=== PATIENT | male | born 1940 | race Caucasian/White ===

== ENCOUNTER 2016-06-27 08:12 | Inpatient (IN) | payer MEDICARE ==
[~2016-06-27] VITALS: Ht 162.6 cm; Wt 63.6 kg
--- NOTE | ~2016-06-27 | CO ---
ADMIT: 06/27/2016 RM/LOC: 407 [facility] MR#: [id number] [address] [address] KOFI LEVY W [address] [place] [address] Consultation SEX: M AGE: 75 : 1940 DATE OF CONSULTATION: 06/27/2016 ATTENDING PHYSICIAN: Federico Paz CONSULTING PHYSICIAN: Alex Burks MD ADDENDUM: Mr. Levy was seen in consultation and eyed independently after Reymundo Muñoz. I have interviewed Kofi, examined him, reviewed his laboratory and radiographic studies independently. I have also reviewed Reymundo Muñoz's documentation, assessment, and plan, and I am in agreement with that in its entirety. I have recommended nasogastric tube placement if Mr. Levy experiences further nausea or vomiting or worsened distention. His abdomen is currently distended, but soft and nontender. He has had multiple bowel movements today suggesting resolving bowel obstruction versus ileus as the diagnosis. We will continue to follow along, but we will plan to initiate conservative measures if he has further symptomatology. If no further nausea or vomiting overnight and further bowel function, we will plan to initiate a liquid diet tomorrow. I have discussed this as the plan with Kofi and he agrees. Alex Burks MD/ sheyla JOB #: [id number] CC: Federico Paz, Attending Physician Federico Paz, Family Physician
[2016-07-01] MEDS ORDERED: NORVASC DPS10 MG PO (08:59)
[2016-07-01] MEDS ORDERED: PROVENTIL HFA6.7 GM IH (08:59)
[2016-07-01] MEDS ORDERED: VITAMIN D31000 UNIT PO (09:00)
[2016-07-01] MEDS ORDERED: LIPITOR40 MG PO (09:00)
[2016-07-01] MEDS ORDERED: ACIDOPHILUS1 EAC1 PO (09:00)
[2016-07-01] MEDS ORDERED: LOPRESSOR DPS12.5 MG PO (09:00)
[2016-07-01] MEDS ORDERED: STIOLTO RESPIMAT4 GM IH (09:01)
[2016-07-01] MEDS ORDERED: PROTONIX40 MG PO (09:01)
[2016-07-01] MEDS ORDERED: METAMUCIL SF P3.4 GM PO (09:03)
[2016-07-01] MEDS ORDERED: OMEGA-3 DPS1000 MG PO (09:07)
[2016-07-01] MEDS ORDERED: VITAMIN B COMP1 EACH PO (09:07)
[2016-07-01] MEDS ORDERED: ASA CHILDREN'S81 MG PO (09:07)
[2016-07-01] MEDS ORDERED: THERA-M1 EACH PO (09:07)
[2016-07-01] MEDS ORDERED: COLACE-DPS100 MG PO (09:08)
[2016-07-01] MEDS ORDERED: TYLENOL DPS325 MG PO (09:08)
[2016-07-01] MEDS ORDERED: MAALOX DPS30 ML PO (09:08)
--- NOTE | 2016-07-01 21:38 | ER ---
ADMIT: 06/27/2016 RM/LOC: 407 [facility] MR#: [id number] 2620 [facility] [address] [place], [place] [address] LIDIA NEWMAN [address] [place] [address] Emergency Room Report SEX: M AGE: 75 : 1940 DATE: 06/27/2016 ADDENDUM: See T-sheet for complete H and P. A 75-year-old male, who has history of renal cancer and colon cancer, status post nephrectomy and a previous colectomy, comes in complaining of some vague abdominal discomfort and nausea and vomiting. He is apparently cancer-free at this point and gets all his care through the [place]. His physical exam shows he has minimal abdominal tenderness. During this workup, he had to use the restroom. We had the patient get up, he felt very lightheaded, and we checked his blood pressure and he was hypotensive. At that point, I increased his workup and did a sepsis workup on the patient. His CBC was elevated at 23.8, otherwise it was unremarkable. Chemistries are normal other than a magnesium of 1.7 and a creatinine of 2.1. As he does not get his care here, I am unsure of the patient's baseline creatinine at this time. Procalcitonin is 0.09, lactic is 1.8. INR is less than 1. I did get a CT of abdomen and pelvis and of his chest because he has had a chronic cough, the findings show he has early small bowel obstruction. I did get the patient fluid resuscitation here in the ER and was given a dose of antibiotics because of his elevated white blood cell count, even I did not see an obvious source of infection at this time. We did plan on having the patient go to the [place], but they are on diversion. Therefore, the patient was admitted to [facility] and I spoke to Dr. Paz who has graciously agreed to admit the patient to his service for further management. While he was in the ER, the patient did have several bouts of diarrhea, but it was slowing down towards the end of his stay. He was feeling much more comfortable. DIAGNOSES: 1. Small bowel obstruction. 2. Hypotension. 3. Diarrhea. 4. Renal insufficiency. Brannon Mckeon MD/ sheyla JOB #: [id number] CC: Federico Paz MD, Attending Physician Federico Paz MD, Family Physician
--- NOTE | 2016-07-02 07:24 | CO ---
ADMIT: 06/27/2016 RM/LOC: 407 [facility] MR#: [id number] [address] [address] KOFI NEWMAN [address] [place] [address] Consultation SEX: M AGE: 75 : 1940 DATE OF CONSULTATION: 06/27/2016 ATTENDING PHYSICIAN: Federico Paz CONSULTING PHYSICIAN: Alex Burks MD REASON FOR CONSULTATION: Early partial small bowel obstruction. HISTORY OF PRESENT ILLNESS: Kofi is a very pleasant 75-year-old male, who states that he has had crampy abdominal pain for the last 2 weeks. His symptoms progressively got worse overnight and into this morning, where he developed worsening abdominal pain, nausea, and 4 times emesis. He did also have 20 bowel movements that were small and loose today. His bowel movements can be dark at times, but he denies any obvious blood in them. He further denies any hematemesis. He does state that this has happened to him before and he believes it is from his gallbladder surgery back in 2011. Since then, his bowel movements "have never been the same." PAST MEDICAL HISTORY: Significant for hypertension, throat cancer, rectal cancer, high cholesterol, and GERD. PAST SURGICAL HISTORY: 1. Lap steven in 2011. 2. Ventral hernia repair with mesh. 3. Low anterior resection with diverting ileostomy and subsequent takedown. ALLERGIES: MORPHINE. MEDICATIONS: Well documented in chart. FAMILY HISTORY: Noncontributory. SOCIAL HISTORY: The patient is a former smoker, quit approximately two and half years ago. He drinks alcohol, occasional beer. REVIEW OF SYSTEMS: The patient denies any fever, chills, or night sweats. The rest of a comprehensive 10-point review of systems was performed and all other systems are negative. PHYSICAL EXAMINATION: GENERAL: The patient is in no acute distress. He is alert and oriented. HEENT: Head is normocephalic and atraumatic. EOMS are intact. Conjunctivae free of icterus, erythema, or pallor. Pinnae are free of deformities. Nose, midline. No tracheal deviation. NECK: Supple. SKIN: Negative for jaundice, clubbing, edema, pallor, or cyanosis. LUNGS: Normal respiratory effort. HEART: Distal pulses intact. Regular rate and rhythm. ABDOMEN: Soft, nondistended, tender in right lower quadrant and left lower ADMIT: 06/27/2016 RM/LOC: 407 [facility] MR#: [id number] [address] [address] TRENTKOFI [address] [place] [address] Consultation SEX: M AGE: 75 : 1940 quadrants. NEURO: Grossly intact. DIAGNOSTIC IMAGING: CT of abdomen and pelvis revealed possible early small bowel obstruction with dilated loops of small bowel and unclear transition point in the right lower quadrant right at terminal ilium. ASSESSMENT: Early partial small bowel obstruction. PLAN: Plan right now is to continue conservative measures. I will give him clears and place an NG should persistent nausea with emesis occur. I did tell him that if conservative measures were an option for him, his condition were to worsen that we would proceed with surgery. He is in agreement with this plan, had all of his questions answered and would like to proceed. Thank for the consultation of this patient. ZAIN Patel / Alex Burks MD / sheyla JOB #: [id number] CC: Federico Paz, Attending Physician Federico Paz, Family Physician
--- NOTE | 2016-07-02 12:53 | HP ---
ADMIT: 06/27/2016 RM/LOC: 407 [facility] MR#: [id number] [facility]#: [id number] 2620 [facility] [address] [place], [place] [address] LIDIA LEVY [address] [place] [address] History and Physical SEX: M AGE: 75 : 1940 DATE OF SERVICE: CHIEF COMPLAINT: Severe abdominal pain with diffuse abdominal pain and discomfort with cramping with persistent nausea and vomiting. CLINICAL HISTORY: Mr. Levy is a 75-year-old, white male, who usually receives his medical care at the [facility]. He presented to the ER here at [facility] on the afternoon of 06/27/2016, complaining of diffuse abdominal discomfort with cramping and mid abdominal pain. He has had the onset of his abdominal pain the previous evening. The pain has gotten progressively worse since it initially started on 06/26/2016. In conjunction with the pain, he has been quite nauseated and has had intermittent vomiting. He notes that following each emesis, there was a brief period of time that he feels a little better, but then the cramping recurs. He notes he has not been able to eat or drink anything today. If there is any attempt to do so, causes his abdominal cramping to be worse, and he then gets extremely nauseated and has recurrent emesis. This is the point now that he is just having retching and intermittent bilious vomiting. He notes that he has had a couple of loose stools over the last 24 hours, but has not had his usual formed bowel movement. The patient as noted, usually receives his care through the [facility] and has never been previously hospitalized here. He does have significant medical history in that he has history of previous colorectal cancer and a low rectal carcinoma, had resection of his rectum and a portion of his sigmoid colon in 2011. After a period of time, he then had a colostomy, ultimately 8 to 9 months after his initial colon resection. He had a takedown of his colostomy and reanastomosis. In addition to those 2 abdominal surgery, he notes he has also had a previous laparoscopic cholecystectomy in 2011. He had a right nephrectomy for renal cell carcinoma in 2011. Had no previous difficulty with bowel obstruction. His workup in the ER included a CT of the abdomen and pelvis as well as a CT of his chest. His CT of his abdomen and pelvis showed changes consistent with a small bowel obstruction with a transition point noted in the right lower quadrant with distended bowel proximal to that area and decompressed bowel following the area of transition. His workup in the ER also included lab studies which showed his white count to be elevated at 23,800. His creatinine was elevated at 2.1. He was evaluated through the sepsis protocol because of his leukocytosis. However, his procalcitonin was normal at 0.09 and lactic acid was normal at 1.8. As noted, his CT of the abdomen showed small bowel obstruction. His CT of the chest showed extensive changes of COPD with some chronic interstitial scarring, but no evidence of pneumonia and no significant pulmonary masses. In view of his small bowel obstruction, it was felt best to admit for medical management as well as surgical consultation. PAST MEDICAL HISTORY: As noted, he has had no prior admissions to [facility]. All of his admissions have been through the [facility]. He notes he usually has to go to the [facility] for admission. He however, did have radiation therapy here at the [facility]. In 2012, he was diagnosed with squamous cell carcinoma of the larynx and was treated with radiation therapy. He has had no evidence of ADMIT: 06/27/2016 RM/LOC: 407 [facility] MR#: [id number] [address] [address] LIDIA LEVY [facility] [place] [address] History and Physical SEX: M AGE: 75 : 1940 recurrence since then. He is followed by ENT through the [place]. He notes he was hospitalized multiple times in 2012. He was noted to have rectal bleeding and found to have a colon cancer in 2012, this was in the lower rectal segment. As noted, he had a low rectal resection and temporarily had a colostomy for 8 months. Then, had that colostomy taken down and reanastomosis. In addition, in 2012, he also underwent a right nephrectomy. He had a laparoscopic hand- assisted nephrectomy in 2012 for renal cell carcinoma. He notes he had those 4 major surgeries in 2012, and has had no other major surgeries since that time. He has had no other hospitalizations other than for a couple admissions with COPD exacerbations to the [facility]. CURRENT MEDICATIONS: Include: 1. Albuterol metered dose inhaler 2 puffs every 6 hours p.r.n. shortness of breath. 2. Atorvastatin 40 mg at bedtime. 3. Norvasc 10 mg daily. 4. Vitamin D 1000 units daily. 5. Lactobacillus probiotic twice daily. 6. Metoprolol tartrate 12.5 mg b.i.d. 7. Stiolto 2.5/2.5 two puffs daily. 8. Protonix 40 mg daily. 9. Psyllium powder 1 teaspoon twice daily. 10.Vitamin B complex supplement one daily. 11.Baby aspirin 81 mg daily. 12.Fish oil 2000 mg daily. 13.Multivitamin 1 daily. ALLERGIES: NO KNOWN ALLERGIES. MEDICAL ILLNESSES: The patient notes a history of: 1. Chronic obstructive pulmonary disease. 2. Hypertension. 3. Hyperlipidemia. 4. Atherosclerotic coronary vascular disease. 5. History of colorectal CA. Clinically, no evidence of disease. 6. History of renal cell carcinoma. Clinically, no evidence of disease. 7. History of squamous cell carcinoma of the larynx. Clinically, no evidence of disease. 8. 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 Baseline creatinine typically running around 1.5 to 1.7. SOCIAL HISTORY: The patient is . He is retired. He was a forced boxing trainer for 30 years. He currently lives alone in his own home here in [place]. He notes he quit smoking in January of 2013 when he was diagnosed with his laryngeal cancer. Up until that time, he had been 1 to 2 pack a day smoker. 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 He notes his alcohol consumption is quite limited at this point in time, having only an occasional beer once a month. ADMIT: 06/27/2016 RM/LOC: 407 [facility] MR#: [id number] [address] [address] LIDIA LEVY [address] [place] [address] History and Physical SEX: M AGE: 75 : 1940 FAMILY HISTORY: He notes no significant familial related health problems. REVIEW OF SYSTEMS: CONSTITUTIONAL: The patient notes he is very limited in his physical activities due to his COPD. He is O2 dependent, wears O2 continuously because of his hypoxia and shortness of breath. Has very limited activity tolerance, he is always tired. HEENT: No new eye, ear, nose, or throat complaints. He denies any upper respiratory congestion. No recent change in vision or hearing. PULMONARY: He has a chronic cough, marked dyspnea on exertion. He was a long- term heavy smoker with a 90+ pack-year history of smoking. Denies any hemoptysis. CARDIAC: Has a history of coronary artery disease. He has had no recent chest pain. No palpitations. The patient does have orthopnea. Denies any history of rhythm disturbance. No syncope. GASTROINTESTINAL: Has noted nausea for the last 24 hours. Intermittent vomiting, severe abdominal cramping. No blood in the stools. No melena or hematochezia. Does have a past history of colorectal carcinoma. GENITOURINARY: History of chronic kidney disease. Has unilateral left kidney. No flank pain or dysuria at this time. Does have history of mild BPH. MUSCULOSKELETAL: Some generalized arthritic discomfort. NEUROLOGIC: No history of strokes, seizures, or TIAs. No unusual headaches. Does complain of marked lightheadedness and dizziness. Was noted to have significant orthostatics symptoms while in the ER today. ENDOCRINE: No history of diabetes. HEMATOLOGIC: No significant history of anemia or clotting disorders. PHYSICAL EXAMINATION: VITAL SIGNS: Temperature is 98.6, pulse is 89, respirations 22, blood pressure 137/67, O2 saturation is 90% with oxygen at 4 L. Current weight 138 pounds. GENERAL: The patient is a very frail 75-year-old male, who appears older than his stated age. He is in no acute distress. He is oriented x3. Pleasant and cooperative. ENT: Ears are clear. Pupils are equal and reactive. Sclerae nonicteric. Conjunctivae noninflamed. Nose and throat are unremarkable. His oral mucous membranes are dry. NECK: Supple. No cervical adenopathy. No neck vein distention. No carotid bruits. LUNGS: Today are diminished throughout. Breath sounds are coarse. He has some upper airway rhonchi and a few coarse wheezes. No rales noted. No dullness to percussion. HEART: Noted have a regular rhythm. No murmurs. No evidence of failure. ABDOMEN: Somewhat protuberant. Mildly distended. It is tympanic to percussion. Bowel sounds are hypoactive. He does have a scar on his lower abdomen from his previous colon resection, also has a low-lying scar on the right side of his abdomen from previous nephrectomy. He has diffuse tenderness, but no guarding or rigidity. As noted, bowel sounds are ADMIT: 06/27/2016 RM/LOC: 407 [facility] MR#: [id number] [facility] [address] [address] ILDIA LEVY [address] [place] [address] History and Physical SEX: M AGE: 75 : 1940 hypoactive. GENITALIA: Normal male. Bilaterally descended testes. No hernias. RECTAL: Reveals no stool in the rectal ampulla. EXTREMITIES: Today are noted to have no edema. No clubbing or cyanosis. No calf tenderness. Negative Homans sign. He has generalized weakness, age- related sarcopenia, and muscle wasting. When I sit him up on the side of the bed, he does get significant orthostatic symptoms. Feels lightheaded and dizzy. Blood pressure is normal when he is lying down. NEUROLOGIC: I can see no focal deficits. He has marked generalized weakness today. LABORATORY DATA: His pre-admission laboratory work included a CBC, which showed a white count elevated at 23,800, hemoglobin was 16.2, hematocrit 46.7. Lactic acid was 1.8. Procalcitonin 0.09. Sodium was 137, potassium 3.7, BUN was 14, creatinine 2.1. CT scan did show changes of small bowel obstruction. ASSESSMENT AT THE TIME OF ADMISSION: 1. Severe abdominal pain. 2. Protracted nausea. 3. Small bowel obstruction. 4. Severe chronic obstructive pulmonary disease, O2 dependent. 5. Chronic respiratory failure with hypoxia. 6. Hypertension. 7. Hyperlipidemia. 8. Chronic gastroesophageal reflux disease. 9. History of colorectal carcinoma status post low rectal resection. Clinically, no evidence of disease. 10.History of renal cell carcinoma status post right nephrectomy. 11.History of squamous cell carcinoma of the larynx status post radiation therapy. 12.Marked debility secondary to his pulmonary disease. PLAN: Plan is to admit the patient. We will admit the patient for medical management of the small bowel obstruction. We will rehydrate with IV fluids. We will keep him n.p.o., initially. We will ask [facility] to see him in consultation. Hopefully, this small-bowel obstruction will resolve with medical management and not require further surgical intervention. We will continue with present management of his other medical problems including his chronic respiratory failure. Federico Paz MD/ sheyla JOB #: [id number] CC: Federico Paz, Attending Physician Federico Paz, Family Physician
--- NOTE | 2016-07-21 13:06 | DS ---
ADMIT: 06/27/2016 RM/LOC: 407 [facility] MR#: [id number] [address] [address] LIDIA LEVY [address] [place] [address] General Discharge Summary SEX: M AGE: 75 : 1940 ADMISSION DATE: 06/27/2016 DISCHARGE DATE: 06/30/2016 Note: This is a [facility] patient, [facility] patient. ADMITTING DIAGNOSIS: As per history and physical. FINAL DIAGNOSES: 1. Severe abdominal pain, resolved. 2. Partial small bowel obstruction, resolved. 3. Protracted nausea and vomiting, resolved. 4. Severe chronic obstructive pulmonary disease, O2 dependent. 5. Chronic respiratory failure with hypoxia. 6. Hypertension. 7. Hyperlipidemia. 8. Chronic gastroesophageal reflux disease. 9. Past history of colorectal carcinoma, clinically no evidence of disease. 10.History of renal cell carcinoma, status post right nephrectomy. Clinically, no evidence of disease. 11.Squamous cell carcinoma of the larynx, status post radiation therapy. Clinically, no evidence of disease. 12.Marked debility secondary to his severe chronic obstructive pulmonary disease. 13.Acute renal insufficiency, resolved. 14.Chronic kidney disease stage 3. 15.Solitary pulmonary nodule. 16.Tobacco use disorder/nicotine dependence, in full sustained remission. COMPLICATIONS: None. OPERATIONS: None. CLINICAL HISTORY: Mr. Levy is a 75-year-old white male, [facility] patient, who usually receives his healthcare through the [place]. He presented to the ER at [facility] on the afternoon of 06/27/2016, complaining of diffuse abdominal discomfort with abdominal cramping and mid abdominal pain. He was evaluated in the ER and it was felt that he had a partial small bowel obstruction. Given his abdominal pain, dehydration, protracted nausea and vomiting, and acute renal insufficiency, it was felt best to admit. For further details of the patient's clinical history, as well as past medical history and pertinent findings on physical exam, please see dictated history and physical. Please also see Dr. Burks's dictated surgical consultation. LABORATORY AND X-RAY SUMMARY FROM THIS ADMISSION: For complete details of lab, please see cumulative laboratory summary included in the chart. X-ray summary; the patient did have a CT of the chest without contrast as well as a CT of the abdomen and pelvis without contrast. His CT of the abdomen and pelvis showed dilated loops of small bowel with air-fluid levels, findings consistent with small-bowel obstruction with a transition point in the right ADMIT: 06/27/2016 RM/LOC: 407 [facility] MR#: [id number] [address] [address] TRENT LIDIA [address] [place] [address] General Discharge Summary SEX: M AGE: 75 : 1940 lower quadrant. Also, noted on CT was surgical absence of the left kidney. His CT of the chest showed scattered interstitial markings consistent with some degree of interstitial fibrosis. He also was noted to have a dominant nodule in the right lung base. A KUB of his abdomen done on his second hospital day showed a nonspecific bowel gas pattern consistent with a partial small bowel obstruction. HOSPITAL COURSE: The patient was admitted to [facility], started on IV fluids for hydration and placed n.p.o. His abdominal pain was controlled with IV Dilaudid. Nausea was controlled with IV Zofran. Surgery was consulted and they recommended medical management. The patient, by the morning following admission, was feeling better, nausea had improved. We had entertained the possibility of placing an NG, but his nausea subsided with appropriate medication i.e., the IV Zofran. He started to pass gas and was having diarrhea, loose stools. On the second hospital day, his appetite improved and diet was slowly advanced. Unfortunately, despite his chronic respiratory failure, his respiratory status remained stable during this hospitalization. He was dismissed to home on 06/30/2016, his fourth hospital day. He was dismissed with plans to follow up at the [facility]. At discharge, his medications were to include: 1. Lopressor 12.5 mg b.i.d. 2. TJNT mixed with Brovana b.i.d. 3. Spiriva 18 mcg capsule one inhaled once daily. 4. Maalox p.r.n. indigestion. 5. Tylenol p.r.n. minor discomfort. 6. Albuterol metered dose inhaler 2 puffs every 6 hours p.r.n. shortness of breath. 7. Lipitor 40 mg at bedtime. 8. Norvasc 10 mg q.a.m. 9. Vitamin D 1000 units daily. 10.Lactobacillus b.i.d. probiotic. ADMIT: 06/27/2016 RM/LOC: 407 [facility] MR#: [id number] [address] [place] [address] [place] [address] General Discharge Summary SEX: M AGE: 75 : 1940 11.Protonix 40 mg daily. 12.Psyllium powder 1 teaspoon b.i.d. 13.Vitamin B complex one daily. 14.Baby aspirin daily. 15.Fish oil 2000 mg daily. 16.Multivitamin 1 daily. He was to follow up with the [place] in 5 to 7 days. CONDITION AT DISCHARGE: Stable and improved. Small bowel obstruction had resolved, but the patient's long-term prognosis is poor in view of the severity of his pulmonary disease. Federico Paz MD/ sheyla JOB #: [id number] CC: Federico Paz MD, Attending Physician Federico Paz MD, Family Physician
[2016-09-24] MEDS ORDERED: STRIVERDI RESPIM4 GM IH (11:12)
== END 2016-06-30 13:50 | disposition home or self-care (01) | DRG 389 ==
LOC: ER 08:12 → 4PCU 13:20
PROVIDERS: ADMIT Family Medicine
DX: K56.60 Unspecified intestinal obstruction (principal); N17.9 Acute kidney failure, unspecified; J96.11 Chronic respiratory failure with hypoxia; I95.9 Hypotension, unspecified; J44.9 Chronic obstructive pulmonary disease, unspecified; N18.3 Chronic kidney disease, stage 3 (moderate); Z99.81 Dependence on supplemental oxygen; K59.00 Constipation, unspecified; R19.7 Diarrhea, unspecified; E78.5 Hyperlipidemia, unspecified; E86.0 Dehydration; R91.1 Solitary pulmonary nodule; I12.9 Hypertensive chronic kidney disease with stage 1 through stage 4 chronic kidney disease, or unspecified chronic kidney disease; E78.00 Pure hypercholesterolemia, unspecified; I25.10 Atherosclerotic heart disease of native coronary artery without angina pectoris; K21.9 Gastro-esophageal reflux disease without esophagitis; Z85.038 Personal history of other malignant neoplasm of large intestine; Z85.01 Personal history of malignant neoplasm of esophagus; Z90.5 Acquired absence of kidney; Z87.891 Personal history of nicotine dependence; Z85.528 Personal history of other malignant neoplasm of kidney; Z79.82 Long term (current) use of aspirin